=== PATIENT | male | born 1975 | race Caucasian/White ===

== ENCOUNTER 2021-05-15 11:30 | Emergency (ER) | payer OTHER ==
[2021-05-15 11:52] VITALS: BP 135/89
--- NOTE | 2021-05-15 12:42 | XRAY Report ---
PROCEDURE: Knee 4 View LT INDICATIONS: knee pain TECHNIQUE: 4 views of the left knee(s) were acquired. COMPARISON: None. FINDINGS: Bones: No fractures or dislocations. No suspicious bony lesions. The knee joint spaces are well pr eserved. Soft tissues: No joint effusion. No suspicious soft tissue calcifications. IMPRESSION: Unremarkable knee plain films. If it would be helpful for clinical management decision making, please consider a dedicated, schedule d knee MRI for further evaluation (assuming that there is no contraindication). Reviewed by: Bari Mckenna MD on 05/15/2021 11:41 AM [facility] Approved by: Bari Mckenna MD on 05/15/2021 11:41 AM [facility] Station ID: [id number]
--- NOTE | 2021-05-15 12:43 | ED Physician Documentation ---
PD HPI LOWER EXT INJURY - Stated complaint Stated Complaint: L KNEE PX - Chief complaint Chief Complaint: Ext Problem - History obtained from History obtained from: Patient - Additional information Additional information: 45-year-old gentleman has had about 3 days of left knee pain anteriorly worse with bending and complete extension. There was no specific injury but he does note because of the way they have set up their house he has had to crawl around on the floor a lot when he watches TV because the use of projector. No other injuries. Had a similar issue with the other knee a few years ago which made him dysfunctional for about a month. Review of Systems Constitutional: denies: Fever, Chills Eyes: reports: Reviewed and negative Ears: reports: Reviewed and negative Nose: reports: Reviewed and negative Throat: reports: Reviewed and negative PD PAST MEDICAL HISTORY - Present Medications Home Medications: Ambulatory Orders Medication Instructions Recorded Confirmed Meloxicam [Mobic] 7.5 mg PO BID PRN #20 tablet 05/15/21 - Allergies Allergies/Adverse Reactions: Allergies Allergy/AdvReac Type Severity Reaction Status Date / Time No Known Drug Allergies Allergy Verified 05/15/21 11:52 PD ED PE NORMAL - Vitals Vital signs reviewed: Yes - General General: Alert and oriented X 3, No acute distress - Extremities Extremities: Other (There is a very small effusion of the left knee, that he is tender over the tibial plateau. No warmth or redness. No exquisite pain with passive range of motion. Ligamentous testing is intact and negative grind testing.) - Neuro Neuro: Alert and oriented X 3, Normal speech Results - Vitals Vitals: Vital Signs - 24 hr 05/15/21 11:48 Temperature 36.1 C L Heart Rate 96 Respiratory 18 Rate Blood Pressure 135/89 H O2 Saturation 95 Oxygen O2 Source Room air - Rads (name of study) 4 view left knee x-ray is without acute disease. 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 Radiology: EMP read contemporaneously PD MEDICAL DECISION MAKING - ED course ED course: 45-year-old gentleman with an atraumatic effusion of the left knee, no evidence of infection. He is placed in a splint upon crutches and will prescribe some NSAIDs and orthopedic follow-up if not rapidly better. Departure - Departure Disposition: 01 Home, Self Care Clinical Impression: Effusion, left knee Condition: Good Record reviewed to determine appropriate education?: Yes Instructions: ED Effusion Knee Prescriptions: Meloxicam [Mobic] 7.5 mg PO BID PRN #20 tablet PRN Reason: Pain Comments: As discussed, it seems that you have a small effusion of the left knee. Wear the splint and go up on the crutches for at least few days to let it rest. Ice and elevate as well. Return for new or worsening symptoms. If not improved in a week, follow-up with a orthopedist closer to home, take the copy of the x-rays with you. If you do end up having to follow-up with orthopedics, the [facility] clinic number is [phone].
== END 2021-05-15 13:12 | disposition home or self-care (01) ==
LOC: ED 11:30
DX: M25.462 Effusion, left knee (principal)
CPT/HCPCS: 99283